=== PATIENT | female | born 1975 | race Caucasian/White ===

== ENCOUNTER → 2016-06-18 | Day surgery (SDC) | payer OTHER ==
[~2016-06-18] VITALS: Ht 154.9 cm; Wt 56.7 kg
[~2016-06-18] MED LIST: ADIPEX-P37.5 M1 PO; DOSS PO; NAPROSYN500 MG PO; NORCO 5-325 TA1 EACH PO; PERCOCET 5-3251 EACH PO; PHENERGAN 12.12.5 M1 PO; STOOL SOFTENER250 MG PO
[2016-06-18 12:41] LABS: BUN/CREATININE RATIO 20 (0-10)
== END | disposition home or self-care (01) ==
LOC: OR 06-09 11:30
PROVIDERS: Orthopaedic Surgery
PROC: 0YP90JZ Removal of Synthetic Substitute from Right Lower Extremity, Open Approach (ICD-10-PCS; principal; 2016-06-18 15:00)
DX: T84.84XA Pain due to internal orthopedic prosthetic devices, implants and grafts, initial encounter (principal); F17.210 Nicotine dependence, cigarettes, uncomplicated; Z79.899 Other long term (current) drug therapy; Y83.1 Surgical operation with implant of artificial internal device as the cause of abnormal reaction of the patient, or of later complication, without mention of misadventure at the time of the procedure; Z98.51 Tubal ligation status
CPT/HCPCS: 36415; 73560; 76000; 80048; J0690; J2250; J3010; J7120